=== PATIENT | male | born 1960 | race Caucasian/White ===

== ENCOUNTER 2018-02-20 09:17 | Outpatient (CLI) | payer BC ==
--- NOTE | 2018-02-20 12:03 | MRI ---
BRAIN MRI WITH AND WITHOUT CONTRAST: Date: 02-20-18 Comparison: None. History: Vestibular neuritis, hearing loss in left ear for one month with dizziness. Technique: Multiplanar, multisequence MR images of the brain were obtained with and without contrast utilizing an internal auditory canal protocol. FINDINGS: The diffusion weighted imaging demonstrates no evidence for acute infarction. There is mild mucosal thickening involving maxillary sinuses and ethmoid air cells with no significan t opacification of the paranasal sinuses noted. There are a few scattered opacified mastoid air cells bilaterally. Arterial flow voids at the axial l evel of the skull base appear grossly unremarkable on the T2 weighted imaging. This section T2 weighted imaging through the skull base demonstrates no evidence for a cerebelloponti ne angle mass on either side. The internal auditory canal, the cochlea, the vestibule, and the semici rcular canals demonstrate normal C2 signal intensity. The region bone marrow signal intensity appears within normal limits. There is no midline shift, mass effect, or ventricular enlargement. Thin section post contrast imaging demonstrates no abnormal enhancement in the region of the cerebell opontine angle, the internal auditory canal, the cochlea, the vestibule, or the semicircular canals o n either side. Whole brain post contrast imaging demonstrates no abnormal enhancement within the brai n parenchyma. IMPRESSION: 1. Grossly unremarkable contrast enhanced brain MRI using the internal auditory canal protocol. POS: C
== END 2018-02-20 09:18 | disposition home or self-care (01) ==
LOC: MRI 09:17
PROVIDERS: ATTEND Otolaryngology Plastic Surgery within the Head & Neck
DX: H81.20 Vestibular neuronitis, unspecified ear (principal)
CPT/HCPCS: 70553